=== PATIENT | female | born 1955 | race Caucasian/White ===

== ENCOUNTER 2016-09-22 07:22 | Emergency (ER) | payer BC ==
[2016-09-22] MEDS ORDERED: MECLIZINE HYDROCHLORIDE 12.5 MG TAB PO ONE ×2 (07:55→09:09)
[2016-09-22] MEDS ORDERED: MECLIZINE HYDROCHLORIDE 12.5 MG TAB ONE ×3 (07:56→09:14)
[2016-09-22] MEDS ORDERED: ONDANSETRON 4 MG ODT BU ONE (09:07)
[2016-09-22] MEDS ORDERED: LORAZEPAM 2 MG/ML SOL IM ONE (09:10)
[2016-09-22] MEDS ORDERED: ONDANSETRON 4 MG ODT ONE (09:11)
[2016-09-22] MEDS ORDERED: LORAZEPAM 2 MG/ML SOL ONE (09:13)
[2016-09-22 09:37] VITALS: BP 157/102; PULSE 79; RESP 18; TEMP 99; O2SAT 94
== END 2016-09-22 10:19 | disposition home or self-care (01) ==
LOC: ED 07:22
DX: H81.10 Benign paroxysmal vertigo, unspecified ear (principal)
CPT/HCPCS: 99284 ×2; J2060